=== PATIENT | female | born 1945 | race Caucasian/White ===

== ENCOUNTER 2021-01-15 09:35 | Outpatient (CLI) | payer MEDICARE | END 2021-01-15 09:36 | disposition home or self-care (01) | LOC: BICMRI 09:35 | PROVIDERS: ATTEND Family Medicine | DX: M54.50 Low back pain, unspecified (principal); M54.10 Radiculopathy, site unspecified; M43.9 Deforming dorsopathy, unspecified; M48.061 Spinal stenosis, lumbar region without neurogenic claudication; Z98.890 Other specified postprocedural states | CPT/HCPCS: 72148 ==

== ENCOUNTER 2021-01-15 10:55 | Outpatient (CLI) | payer MEDICARE | END 2021-01-15 10:56 | disposition home or self-care (01) | LOC: BICMAMMO 10:55 | PROVIDERS: ATTEND Family Medicine | DX: Z12.31 Encounter for screening mammogram for malignant neoplasm of breast (principal); Z91.89 Other specified personal risk factors, not elsewhere classified; Z98.890 Other specified postprocedural states | CPT/HCPCS: 77063; 77067 ==

== ENCOUNTER 2022-03-06 15:04 | Outpatient (CLI) | payer MEDICARE | END 2022-03-06 15:05 | disposition home or self-care (01) | LOC: BICRAD 15:04 | PROVIDERS: ATTEND Family Medicine | DX: Z11.1 Encounter for screening for respiratory tuberculosis (principal) | CPT/HCPCS: 71046 ==